=== PATIENT | male | born 1990 | race Caucasian/White ===

== ENCOUNTER 2017-03-13 16:45 | Inpatient (IN) | payer MEDICAID ==
[~2017-03-13] VITALS: Ht 170.2 cm; Wt 69.7 kg
[2017-03-13] MEDS ORDERED: VANCOMYCIN 1GM/250ML D5W 250 ML IV ONE (18:45)
[2017-03-13] MEDS ORDERED: cefTRIAXone 1GM/50ML D5W 50 ML IV ONE (18:45)
[2017-03-13] MEDS ORDERED: ONDANSETRON HCL 4 MG/2 ML VIAL IV ONE (18:45)
[2017-03-13] MEDS ORDERED: NICOTINE 21MG/24 HR TOPICAL PATCH TD ONE (18:45)
[2017-03-13] MEDS ORDERED: HYDROmorphone HCL 2 MG/ML VL IV ONE (18:45)
[2017-03-13 19:22] LABS: Basophils # (auto) 0 uL; Basophils % (auto) 0.3 % (0.0-2.0); Eosinophils # (auto) 0 uL; Eosinophils % (auto) 0.1 % (0.0-7.0); Hematocrit 43.2 % (41.0-53.0); Lymphocytes # (auto) 1.1 uL; Lymphocytes % (auto) 9.6 % (10.0-50.0); Mean Corpuscular Hemoglobin 32.2 pg (28.0-32.0); Mean Corpuscular Hgb Conc. 34.7 g/dL (32.0-36.0); Mean Platelet Volume 6.7 fL (6.9-10.8); Monocytes # (auto) 0.5 uL; Monocytes % (auto) 4.2 % (0.0-12.0); Neutrophils # (auto) 9.9 uL; Neutrophils % (auto) 85.8 % (37.0-80.0); Nucleated Red Blood Cells % 0.4 %; Platelet Count (auto) 324 10^3/uL (140-450); Red Cell Distribution Width 12.9 % (11.8-14.3); White Blood Cell 11.6 10^3/uL (4.4-10.8)
[2017-03-13 19:37] LABS: Albumin 3.5 g/dL (3.4-5.0); BUN/Creatinine Ratio 10.4; Bilirubin, Total 0.9 mg/dL (0.2-1.0); Calcium 8.3 mg/dL (8.5-10.1); Potassium 3.1 mmol/L (3.5-5.1)
[2017-03-13 21:06] LABS: Urine RBC None Seen /hpf (0 - 3)
[2017-03-13 21:29] LABS: Urine Bilirubin Negative (Negative); Urine Blood Negative /uL (Negative); Urine Color Yellow (Yellow); Urine Glucose Normal (Normal); Urine Ketone 2+ (Negative); Urine Nitrite Negative (Negative); Urine Urobilinogen Normal (Negative)
[2017-03-13] MEDS: SODIUM CHLORIDE 0.9% 1,000 ML IV SCH (23:45)
[2017-03-13] MEDS ORDERED: VANCOMYCIN PER PHARMACY 0 MG IV SCH (23:45)
[2017-03-13] MEDS ORDERED: ONDANSETRON HCL 4 MG/2 ML VIAL IV PRN (23:45)
[2017-03-14 02:39] VITALS: BP 108/53
[2017-03-14 05:00] VITALS: BP 109/65
[2017-03-14 06:35] LABS: Basophils # (auto) 0.1 uL; Basophils % (auto) 0.7 % (0.0-2.0); Eosinophils # (auto) 0 uL; Eosinophils % (auto) 0.3 % (0.0-7.0); Hematocrit 43.4 % (41.0-53.0); Hemoglobin 14.9 g/dL (13.5-17.5); Lymphocytes # (auto) 1.3 uL; Lymphocytes % (auto) 11.5 % (10.0-50.0); Mean Corpuscular Hgb Conc. 34.3 g/dL (32.0-36.0); Mean Corpuscular Volume 93.3 fL (80.0-100.0); Mean Platelet Volume 6.9 fL (6.9-10.8); Monocytes # (auto) 1.1 uL; Monocytes % (auto) 10.1 % (0.0-12.0); Neutrophils # (auto) 8.8 uL; Neutrophils % (auto) 77.4 % (37.0-80.0); Nucleated Red Blood Cells % 0.2 %; Platelet Count (auto) 326 10^3/uL (140-450); Red Cell Distribution Width 13.2 % (11.8-14.3); White Blood Cell 11.4 10^3/uL (4.4-10.8)
[2017-03-14 06:56] LABS: Calcium 8.1 mg/dL (8.5-10.1); Potassium 3.9 mmol/L (3.5-5.1)
[2017-03-14 06:57] LABS: BUN/Creatinine Ratio 13.2
[2017-03-14] MEDS: SODIUM CHLORIDE 0.9% 1,000 ML IV SCH (07:45)
[2017-03-14] MEDS: VANCOMYCIN 1GM/250ML D5W 250 ML IV SCH ×2 (08:14→20:26)
[2017-03-14 11:22] VITALS: BP 112/58
[2017-03-14] MEDS ORDERED: cefTRIAXone 1GM/50ML D5W 50 ML IV ONE (12:30)
[2017-03-14] MEDS ORDERED: NICOTINE 21MG/24 HR TOPICAL PATCH TD ONE (12:30)
[2017-03-14 13:31] LABS: Hepatitis B Surface Antibody Negative
[2017-03-14 18:56] VITALS: BP 110/67
[2017-03-14] MEDS: ACETAMINOPHEN 500 MG TAB PO PRN (20:25)
[2017-03-14 22:00] VITALS: BP 121/70
[2017-03-15] MEDS: SODIUM CHLORIDE 0.9% 1,000 ML IV SCH ×3 (00:29→19:45)
[2017-03-15 05:00] VITALS: BP 114/68
[2017-03-15 06:40] LABS: Basophils # (auto) 0.1 uL; Basophils % (auto) 0.8 % (0.0-2.0); Eosinophils # (auto) 0.1 uL; Eosinophils % (auto) 2.1 % (0.0-7.0); Hematocrit 42.2 % (41.0-53.0); Hemoglobin 14.9 g/dL (13.5-17.5); Lymphocytes # (auto) 1.7 uL; Lymphocytes % (auto) 27.7 % (10.0-50.0); Mean Corpuscular Hemoglobin 32.9 pg (28.0-32.0); Mean Corpuscular Hgb Conc. 35.2 g/dL (32.0-36.0); Mean Corpuscular Volume 93.3 fL (80.0-100.0); Mean Platelet Volume 6.8 fL (6.9-10.8); Monocytes # (auto) 0.7 uL; Monocytes % (auto) 11.7 % (0.0-12.0); Neutrophils # (auto) 3.6 uL; Neutrophils % (auto) 57.7 % (37.0-80.0); Nucleated Red Blood Cells % 0.1 %; Platelet Count (auto) 290 10^3/uL (140-450); Red Cell Distribution Width 13.1 % (11.8-14.3); White Blood Cell 6.2 10^3/uL (4.4-10.8)
[2017-03-15 07:03] LABS: BUN/Creatinine Ratio 16.4; Calcium 8.2 mg/dL (8.5-10.1); Potassium 3.9 mmol/L (3.5-5.1)
[2017-03-15] MEDS: VANCOMYCIN 1GM/250ML D5W 250 ML IV SCH ×2 (08:00→21:07)
[2017-03-15] MEDS: cefTRIAXone 1GM/50ML D5W 50 ML IV SCH (08:46)
[2017-03-15] MEDS: NICOTINE 21MG/24 HR TOPICAL PATCH TD SCH ×2 (08:47→09:01)
[2017-03-15 09:00] VITALS: BP 114/58
[2017-03-15 13:00] VITALS: BP 113/65
[2017-03-15 17:00] VITALS: BP 119/67
[2017-03-15] MEDS: ACETAMINOPHEN 500 MG TAB PO PRN (21:08)
[2017-03-15 22:00] VITALS: BP 114/71
[2017-03-16] MEDS: SODIUM CHLORIDE 0.9% 1,000 ML IV SCH (05:29)
[2017-03-16 06:07] VITALS: BP 114/69
[2017-03-16] MEDS ORDERED: VANCOMYCIN 1GM/250ML D5W 250 ML IV SCH (08:00)
[2017-03-16 09:00] VITALS: BP 116/73
[2017-03-16] MEDS: NICOTINE 21MG/24 HR TOPICAL PATCH TD SCH (10:00)
[2017-03-16] MEDS: cefTRIAXone 1GM/50ML D5W 50 ML IV SCH (10:57)
[2017-03-16 13:00] VITALS: BP 125/65
== END 2017-03-16 13:35 | disposition home or self-care (01) | DRG 720 ==
LOC: ER 16:45 → OVERFLOW 16:46 → EDUNIT# 16:46 → OVERFLOW 03-14 01:24 → EAST 03-14 01:39
PROVIDERS: ADMIT Nurse Practitioner Family; ATTEND Internal Medicine
DX: A41.9 Sepsis, unspecified organism (principal); B15.9 Hepatitis A without hepatic coma; I10 Essential (primary) hypertension; L02.413 Cutaneous abscess of right upper limb; F19.90 Other psychoactive substance use, unspecified, uncomplicated; F15.90 Other stimulant use, unspecified, uncomplicated; L03.113 Cellulitis of right upper limb; F17.210 Nicotine dependence, cigarettes, uncomplicated; Z82.49 Family history of ischemic heart disease and other diseases of the circulatory system; Z71.6 Tobacco abuse counseling
CPT/HCPCS: 36415; 71010; 73200; 80048; 80053; 80202; 80307; 81001; 83605; 85025; 86704; 86706; 86708; 86803; 87040; 87205; 87340; 93306; 96365; 96375; J0696; J2405